=== PATIENT | male | born 1945 | race Caucasian/White ===

== ENCOUNTER 2017-01-08 10:00 | Inpatient (IN) | payer BC ==
--- NOTE | 2017-01-09 15:19 | HP ---
[facility] - Chief Complaint Chief Complaint: left knee pain - Past Medical History Allergies/Adverse Reactions: Allergies Allergy/AdvReac Type Severity Reaction Status Date / Time No Known Allergies Allergy Verified 12/28/16 12:21 - Current Medications Current Medications: Home Medications Medication Instructions Recorded Ferrous Sulfate [Feosol] 325 mg PO DAILY 12/28/16 [facility] Physical Exam - Physical Examination General Appearance: Well Nourished, Well Developed, Alert & Oriented x3 ENT: Clear Lung: Normal air movement Heart: Regular rate & rhythm Extremities: Other (left knee- + swelling, + ttp, decr rom, nvi xrays shows severe tricompartmental djd) Neurological: Intact, Alert, Oriented [facility] Impression/Plan - Impression/Plan Impression: left knee djd Operative Procedure: left blaise tkr Date to be Performed: 01/11/17
[2017-01-11] MEDS ORDERED: GABAPENTIN 300 MG CAPSULE (FP) PO ONE (08:16)
[2017-01-11] MEDS ORDERED: CEFAZOLIN 2 GM in DEXTROSE 5%-WATER - 50 ML IVPB ONE (08:16)
[2017-01-11] MEDS ORDERED: TRANEXAMIC ACID 1000 MG/10 ML VIAL IVPUSH ONE (08:16)
[2017-01-11] MEDS ORDERED: CELECOXIB 200 MG CAPSULE PO ONE (08:16)
[2017-01-11] MEDS ORDERED: ROPIVACAINE HCL 0.5% 30ML VIAL ONE (09:31)
[2017-01-11] MEDS ORDERED: MIDAZOLAM HCL 2 MG/2 ML SINGLE DOSE VIAL ONE ×3 (09:31→13:06)
[2017-01-11] MEDS ORDERED: SODIUM CHLORIDE 0.9% P/F 10 ML VIAL IJ ONE (09:31)
[2017-01-11] MEDS ORDERED: DEXAMETHASONE SOD PHOSPHATE/PF 10 MG/ML SDV ONE (09:31)
[2017-01-11] MEDS ORDERED: ceFAZolin SODIUM 1 GM VIAL ONE ×2 (10:28→12:37)
[2017-01-11] MEDS ORDERED: ONDANSETRON 4 MG/2 ML VIAL IVPUSH PRN (13:33)
[2017-01-11] MEDS ORDERED: PROMETHAZINE HCL 25 MG/1 ML VIAL IVPUSH PRN (13:33)
[2017-01-11] MEDS ORDERED: ROPIVACAINE 0.2% 400ML 400 ML ML NR ONE (13:33)
[2017-01-11] MEDS ORDERED: ONDANSETRON 4 MG/2 ML VIAL IVPB PRN (13:38)
[2017-01-11] MEDS ORDERED: GABAPENTIN 300 MG CAPSULE (FP) PO SCH (13:45)
[2017-01-11] MEDS ORDERED: LACTATED RINGERS SOLUTION 1,000 ML IV SCH ×2 (13:45)
--- NOTE | 2017-01-11 13:50 | SPEC ---
DATE OF OPERATION: 01/11/2017 OPERATION: Left total knee replacement with robotic-assisted navigation (MAKOplasty). PREOPERATIVE DIAGNOSIS: Degenerative joint disease, left knee. POSTOPERATIVE DIAGNOSIS: Degenerative joint disease, left knee. SURGEON: Berry Tanner M.D. BATTERY HAND: VLAD Hughes ANESTHESIA: Spinal and regional. CLOSURE: Triathlon knee system with a No. 5 femur, No. 6 tibia, 9 mm polyethylene, 35 patella, No. 1 Vicryl to fascia, 0 and 2-0 subcutaneous, 3-0 Monocryl subcuticular with skin glue for skin, 4-0 undyed Vicryl for pin sites. ESTIMATED BLOOD LOSS: Negligible. TOURNIQUET TIME: Approximately 80 minutes. COMPLICATIONS: None. CONDITION: To recovery room in stable condition. PROCEDURE: Patient was taken to the operating room. Spinal and femoral block anesthesia was administered by the anesthesiologist. IV Kefzol and TXA were administered prophylactically prior to the case. A well-padded pneumatic tourniquet was placed on the left proximal thigh. The left lower extremity was prepped and draped in the usual sterile fashion. A 6 cm longitudinal incision was made along the medial retinaculum from mid patella toward the tibial tubercle. Hemostasis was achieved using Bovie cautery. Sharp dissection was carried down to the level of the capsule, which was opened the entire length of incision. A subperiosteal dissection in the anterior medial proximal tibia. Periosteal elevator was used to facilitate this dissection. Partial fat pad excision was performed to gain visualization. A femoral and tibial checkpoint were malleted into place. Two bicortical pins were drilled through small stab incisions into the femur 1 handbreadth above the patella. Two bicortical pins were drilled into the tibia 1 handbreadth below the tibial tubercle through small stab incisions as well. To these, pins were attached to clamp and the navigation arrays. The knee was then registered with the navigation device by ascertaining the center of rotation of the hip, both the medial and lateral malleoli, at approximately 50 points on the tibia and femur. Registration was within [place] parameters, being less than half a millimeter. At this time, the medial osteophytes on both the femur and tibia were removed by use of rongeur. The knee was taken through a range of motion and with stressing the medial compartment open at 0, 30, 60, 90 and 120 degrees. Stress points were obtained in order to develop a flexion/extension and a tightness/looseness graph. The robotic navigation device obtained a virtual tracking of the knee and found that the traction was in excellent position. The components were manipulated virtually in order to obtain a flexion/extension, tightness/looseness graph which was then +/- 1 mm. The robot was then brought into the field and registered with the navigation device. The robot was then used to wilder the bone on both the femur and the tibia to the specifications and direction of the navigation device. All excess bone and osteophytes and cartilage were removed, including the medial meniscus. Care was taken to protect the MCL throughout the case. The trial components were then placed into the knee with the appropriate polyethylene plastic trial liner. The knee was taken through a range of motion and the graph on the navigation device was then used again to confirm ideal position of the components and ideal tightness/looseness of the components. The trial components were removed, along with the checkpoints and the array. The knee was exsanguinated with an Esmarch bandage and tourniquet inflated to 175 mmHg. The knee was post-antibiotic irrigated and then dried and then Avitene and Gelfoam were placed to aid in hemostasis. The real components were then cemented in using modern generation cement techniques with antibiotics, cement and pressurization. All excess cement was removed. The knee was thoroughly inspected to remove any excess cement and bone fragments. The real polyethylene component was then clipped into place. Range of motion revealed excellent range of motion and good tensioning throughout. The knee was post-antibiotic irrigated. The fascia was closed using 2-0 Vicryl interrupted suture. The tourniquet was deflated. Total tourniquet time was less than 30 minutes. Hemostasis was obtained. Another dose of TXA was administered. The subcutaneous was closed with 2-0 Vicryl, 3-0 Monocryl subcuticular for skin. A pain cocktail was infused throughout the soft tissue. The pin sites were irrigated and closed with 4-0 Vicryl and skin glue was used for all incisions. Sterile Aquacel dressing was placed on all incisions followed by a dressing from the toes to the thigh. Patient was transferred to the recovery room in stable condition. No complications. Donna [id number]
[2017-01-11] MEDS ORDERED: MAG HYDROX/AL HYDROX/SIMETH 30 ML UNIT-DOSE CUP PO PRN (14:20)
[2017-01-11] MEDS ORDERED: oxyCODONE HCL 5 MG TABLET PO PRN (14:22)
[2017-01-11] MEDS ORDERED: ACETAMINOPHEN 325 MG TABLET (FP) PO SCH (14:45)
--- NOTE | 2017-01-11 15:44 | SURG ---
Surgery Checker Product Design Note Checker Product Design: Jonatan Beverly PA-C Date of Service: 01/11/17 Diagnosis: Left knee djd Procedure: Left knee [place] TKR I was present for the entirety of the operative procedure. For further detail, please refer to operative report. Visit type - Case Type Case Type: Scheduled Admission - New patient This patient is new to me today: Yes Date on this admission: 01/11/17
[2017-01-11] MEDS: oxyCODONE HCL 5 MG TABLET PO PRN (17:56)
[2017-01-11] MEDS: CEFAZOLIN 2 GM/D5W 50 ML IVPB SCH (17:56)
[2017-01-11] MEDS: FERROUS SO4 325 MG TABLET (FP) PO SCH (21:10)
[2017-01-11] MEDS: GABAPENTIN 300 MG CAPSULE (FP) PO SCH (21:10)
[2017-01-11] MEDS: oxyCODONE HCL 10 MG SUSTAINED ACTING TABLET PO SCH (21:11)
[2017-01-11] MEDS: SENNOSIDES/DOCUSATE COMBO (SENNA PLUS) TABLET (UD) PO SCH (21:11)
[2017-01-11] MEDS: ASCORBIC ACID 500 MG TABLET (FP) PO SCH (21:12)
[2017-01-11] MEDS: CELECOXIB 200 MG CAPSULE PO SCH (21:12)
[2017-01-11] MEDS: ACETAMINOPHEN 325 MG TABLET (FP) PO SCH (21:12)
[2017-01-12] MEDS: oxyCODONE HCL 5 MG TABLET PO PRN ×4 (01:15→22:00)
[2017-01-12] MEDS: CEFAZOLIN 2 GM/D5W 50 ML IVPB SCH (01:15)
[2017-01-12] MEDS: ACETAMINOPHEN 325 MG TABLET (FP) PO SCH ×4 (05:17→22:00)
[2017-01-12] MEDS: ASPIRIN 325 MG TABLET PO SCH (08:28)
[2017-01-12 09:02] LABS: MCH 31.4 pg (25.7-33.7); MEAN CELL VOLUME 92.3 fl (80-96); MEAN PLT VOLUME 9.4 fl (7.5-11.1); PLATELET COUNT 197 K/MM3 (134-434); RDW 12.5 % (11.9-15.9); WHITE BLOOD COUNT 14.8 K/mm3 (4.0-10.0)
[2017-01-12 09:19] LABS: CALCIUM 8.8 mg/dl (8.4-10.2); CREATININE 1.1 mg/dl (0.6-1.3)
[2017-01-12] MEDS: oxyCODONE HCL 10 MG SUSTAINED ACTING TABLET PO SCH ×2 (10:35→21:59)
[2017-01-12] MEDS: CELECOXIB 200 MG CAPSULE PO SCH ×2 (10:35→21:59)
[2017-01-12] MEDS: MULTIVITAMINS (DAILY MVI) TABLET (FP) PO SCH (10:35)
[2017-01-12] MEDS: GABAPENTIN 300 MG CAPSULE (FP) PO SCH ×2 (10:36→21:59)
[2017-01-12] MEDS: SENNOSIDES/DOCUSATE COMBO (SENNA PLUS) TABLET (UD) PO SCH ×2 (10:36→21:59)
[2017-01-12] MEDS: PANTOPRAZOLE 40 MG TABLET (FP) PO SCH (10:37)
[2017-01-12] MEDS: ASCORBIC ACID 500 MG TABLET (FP) PO SCH ×2 (10:39→21:59)
--- NOTE | 2017-01-12 17:13 | PN ---
Progress Note (short form) - Note Progress Note: Pt seen and examined. He is on POD #1 s/p L knee Jorge. He is doing very well, has no real c/o pain. He did well with P.T., he is moving the left knee. LLE is NVI Dressing CDI Overall doing well Rec con't P.T. DC home likely tomorrrow morning F/U with Dr Tanner in 1 week
--- NOTE | 2017-01-12 18:34 | PN ---
Progress Note (short form) - Note Progress Note: S: Pt. without complaints O: VAS 6/10 (pt. states this is comfortable for him) A/P: POD#1 s/p left tkr 1. Continuous adductor infusion d/cd in prep for early discharge tomorrow. Cath removed. Tip intact 2. continue post-op pain meds as ordered
[2017-01-12 18:56] VITALS: BMI 21.3
[2017-01-12] MEDS: FERROUS SO4 325 MG TABLET (FP) PO SCH (21:59)
[2017-01-13] MEDS: oxyCODONE HCL 5 MG TABLET PO PRN ×2 (06:00→11:21)
[2017-01-13] MEDS: ACETAMINOPHEN 325 MG TABLET (FP) PO SCH ×2 (07:00→09:28)
[2017-01-13] MEDS: ASPIRIN 325 MG TABLET PO SCH (08:44)
[2017-01-13] MEDS: ASCORBIC ACID 500 MG TABLET (FP) PO SCH (09:27)
[2017-01-13] MEDS: oxyCODONE HCL 10 MG SUSTAINED ACTING TABLET PO SCH (09:28)
[2017-01-13] MEDS: PANTOPRAZOLE 40 MG TABLET (FP) PO SCH (09:28)
[2017-01-13] MEDS: CELECOXIB 200 MG CAPSULE PO SCH (09:28)
[2017-01-13] MEDS: GABAPENTIN 300 MG CAPSULE (FP) PO SCH (09:28)
[2017-01-13] MEDS: MULTIVITAMINS (DAILY MVI) TABLET (FP) PO SCH (09:28)
[2017-01-13] MEDS: SENNOSIDES/DOCUSATE COMBO (SENNA PLUS) TABLET (UD) PO SCH (09:28)
[2017-01-13 09:42] LABS: MCH 31.3 pg (25.7-33.7); MCHC 33.5 g/dl (32.0-35.9); MEAN CELL VOLUME 93.5 fl (80-96); MEAN PLT VOLUME 10.1 fl (7.5-11.1); PLATELET COUNT 183 K/MM3 (134-434); RDW 13.1 % (11.9-15.9); WHITE BLOOD COUNT 10.4 K/mm3 (4.0-10.0)
[2017-01-13 09:46] VITALS: BP 127/57; PULSE 68; TEMP 97.6
--- NOTE | 2017-01-16 14:54 | PATH ---
Surgical Pathology Report Patient Name: MARIA LUZ MANZANARES Med. Rec. #: [id number] /Age/Gender: 1945 (Age: 71) / M Account: [id number] Location: [facility] MED-SURG Taken: 01/11/2017 Received: 01/11/2017 Reported: 01/16/2017 Physicians: Berry Tanner M.D. Specimen(s) Received BONE LEFT KNEE Clinical History Left knee osteoarthritis Final Diagnosis BONE, LEFT KNEE, TOTAL KNEE REPLACEMENT: DEGENERATIVE JOINT DISEASE. Electronically Signed Sakshi Beltran M.D. Gross Description Received in formalin labeled "bone left knee," is a 12.5 x 12.0 x 2.0 cm aggregate of multiple irregular portions of bone and soft tissue. The tibial plateau measures 8.0 x 6.0 x 1.7 cm. There are no areas of eburnation identified. The remaining articular surfaces are rebollar-yellow and diffusely granular. The underlying trabecular bone is yellow and hard. Thai Masseur sections are submitted in one cassette following decalcification. 01/15/2017 [facility]01[facility]15/2017
== END 2017-01-13 11:54 | disposition home health service (06) | DRG 470 ==
LOC: FM/S 01-11 07:56
PROVIDERS: ADMIT Orthopaedic Surgery; ATTEND Orthopaedic Surgery
PROC: 8E0Y0CZ Robotic Assisted Procedure of Lower Extremity, Open Approach (ICD-10-PCS; 2017-01-11)
PROC: 0SRD0J9 Replacement of Left Knee Joint with Synthetic Substitute, Cemented, Open Approach (ICD-10-PCS; principal; 2017-01-11 11:52)
DX: M17.12 Unilateral primary osteoarthritis, left knee (principal)
CPT/HCPCS: 36415; 73560-TC-LT; 80048; 85027; 88304-TC; 88311-TC; 94760; 97116-GP; 97162-PG